=== PATIENT | male | born 1995 | race Caucasian/White ===

== ENCOUNTER 2018-09-24 12:09 | Emergency (ER) | payer OTHER ==
[2018-09-24 12:25] VITALS: BP 152/89; RESP 18; TEMP 98.4
[2018-09-24] MEDS ORDERED: ALBUTEROL NEBULIZED 2.5 MG/3 ML INHALATION STA (13:43)
[2018-09-24] MEDS ORDERED: ONDANSETRON 4 MG TAB PO STA (13:43)
[2018-09-24] MEDS ORDERED: predniSONE 20 MG TAB PO STA (13:43)
[2018-09-24] MEDS ORDERED: ONDANSETRON ODT 4 MG TAB PO STA (13:51)
--- NOTE | 2018-09-24 13:55 | ED ---
URI HPI - General Chief Complaint: Upper Respiratory Infection Stated Complaint: URI Time Seen by Provider: 09/24/18 13:33 Source: patient Mode of arrival: ambulatory Limitations: no limitations - History of Present Illness Initial Comments: Patient is a 22-year-old male presents with a chief complaint of cough, congestion, and a chandra brown sputum production for about one week. The patient states that he has a 2-year-old son who was recently sick with similar symptoms. He thinks he got the infection from his son. The patient states that his sympt oms are worse at night when he tries to bed. He is not hurting any medications for this. He denies any shortness of breath, and states that he has been fully ambulatory. Patient states that he had a fever early on in his illness however he has not had fever in several days. The patient is a current smoker, smokes 1 pack per week. Patient is otherwise healthy. He has a medical history of bipo lar depression and takes medication for but he is unable to recall the name of the medication is. - Related Data Home Medications Medication Instructions Recorded Confirmed Sertraline [Zoloft] 50 mg PO QAM 09/24/18 09/24/18 lamoTRIgine [LaMICtal] 50 mg PO HS 09/24/18 09/24/18 Previous Rx's Medication Instructions Recorded Albuterol Inhaler [Ventolin Hfa 1 - 2 puff INHALATION RT-Q6H #1 09/24/18 Inhaler] inhaler Azithromycin [Zithromax Z-pack] 250 mg PO DIRECTED #6 tab 09/24/18 Ondansetron Odt [Zofran Odt] 4 mg PO Q8HR PRN #12 tab 09/24/18 predniSONE 60 mg PO DAILY #12 tab 09/24/18 Allergies Allergy/AdvReac Type Severity Reaction Status Date / Time No Known Allergies Allergy Verified 09/24/18 13:53 Review of Systems ROS Statement: Those systems with pertinent positive or pertinent negative responses have been documented in the HPI. ROS Other: All systems not noted in ROS Statement are negative. ENT: Reports: congestion Respiratory: Reports: cough Past Medical History Past Medical History: No Reported History History of Any Multi-Drug Resistant Organisms: None Reported Past Surgical History: No Surgical Hx Reported Past Psychological History: Bipolar Smoking Status: Current every day smoker Past Alcohol Use History: None Reported Past Drug Use History: None Reported General Exam Limitations: no limitations General appearance: alert, in no apparent distress Head exam: Present: atraumatic, normocephalic Eye exam: Present: normal appearance ENT exam: Present: mucous membranes moist, other (cerumen impaction bilaterally, erythematous nasal turbinates ) Neck exam: Present: normal inspection Respiratory exam: Present: normal lung sounds bilaterally. Absent: respiratory distress, wheezes Cardiovascular Exam: Present: regular rate, normal rhythm GI/Abdominal exam: Present: soft Rectal exam: Present: deferred Extremities exam: Present: normal inspection Back exam: Present: normal inspection Neurological exam: Present: alert, oriented X3 Psychiatric exam: Present: normal affect, normal mood Skin exam: Present: warm, dry, intact Course Vital Signs 09/24/18 09/24/18 09/24/18 12:23 13:52 13:59 Temperature 98.4 F Pulse Rate 69 78 74 Respiratory 18 Rate Blood Pressure 152/89 O2 Sat by Pulse 97 Oximetry Medical Decision Making - Medical Decision Making Patient presents with a chief complaint of cough and congestion. On initial evaluation, vitals are stable, patient is in no acute distress. Patient to be evaluated with a chest x-ray to rule out pneumonia. Vital signs otherwise stable, no indication for lab evaluation today. Patient was given Zofran, prednisone, and a breathing treatment. He'll be treated for bronchitis and instructed to follow-up with his primary care doctor. 2:38 PM Chest x-ray is unremarkable. On reevaluation, the patient feels better. He was prescribed prednisone, azithromycin, Zofran, and albuterol. He was instructed to follow up with primary care 1-2 days, return to the ED if symptoms worsen or change. Disposition Clinical Impression: Common cold, Bronchitis Disposition: HOME SELF-CARE Condition: Good Instructions (If sedation given, give patient instructions): Upper Respiratory Infection (ED) Prescriptions: predniSONE 60 mg PO DAILY #12 tab Albuterol Inhaler [Ventolin Hfa Inhaler] 1 - 2 puff INHALATION RT-Q6H #1 inhaler Azithromycin [Zithromax Z-pack] 250 mg PO DIRECTED #6 tab Ondansetron Odt [Zofran Odt] 4 mg PO Q8HR PRN #12 tab PRN Reason: Nausea Is patient prescribed a controlled substance at d/c from ED?: No Referrals: None,Stated [Primary Care Provider] - 1-2 days Zaria Narvaez MD [STAFF PHYSICIAN] - 1-2 days
[2018-09-24 14:00] VITALS: PULSE 74
--- NOTE | 2018-09-24 14:22 | XR ---
EXAMINATION TYPE: XR chest 2V DATE OF EXAM: 09/24/2018 COMPARISON: NONE TECHNIQUE: PA and lateral views submitted. HISTORY: Cough FINDINGS: The lungs are clear and there is no pneumothorax, pleural effusion, or focal pneumonia. IMPRESSION: 1. No acute process.
== END 2018-09-24 15:23 | disposition home or self-care (01) ==
LOC: EC 12:09
DX: J40 Bronchitis, not specified as acute or chronic (principal); J00 Acute nasopharyngitis [common cold]; F31.30 Bipolar disorder, current episode depressed, mild or moderate severity, unspecified; F17.210 Nicotine dependence, cigarettes, uncomplicated; Z79.899 Other long term (current) drug therapy
CPT/HCPCS: 94640; 71046; 99283; J7512

== ENCOUNTER 2018-10-06 19:08 | Emergency (ER) | payer OTHER ==
[2018-10-06 19:49] VITALS: BP 135/83; PULSE 64; RESP 18; TEMP 97.4
--- NOTE | 2018-10-06 20:36 | ED ---
ENT HPI - General Chief complaint: ENT Stated complaint: Right hearing loss Time Seen by Provider: 10/06/18 20:06 Source: patient Mode of arrival: ambulatory Limitations: no limitations - History of Present Illness Initial comments: 22-year-old male presented for right ear pain. Patient states it began today after swimming. Patient states he did not go below 8-10ft Denies scuba diving. Patient denies any bleeding in the ear. He states he has slight hearing loss not complete. Patient states the symptoms did not begin until he was attempting to get water of his ears with a Q-tip. Patient denies experiencing symptoms prior to today. Patient denies any fever or chills denies any posterior ear pain. Patient denies upper respiratory symptoms. Remaining review of systems negative patient appears well no signs of acute distress. Afebrile. - Related Data Home Medications Medication Instructions Recorded Confirmed Sertraline [Zoloft] 50 mg PO QAM 09/24/18 09/24/18 lamoTRIgine [LaMICtal] 50 mg PO HS 09/24/18 09/24/18 Previous Rx's Medication Instructions Recorded Albuterol Inhaler [Ventolin Hfa 1 - 2 puff INHALATION RT-Q6H #1 09/24/18 Inhaler] inhaler Azithromycin [Zithromax Z-pack] 250 mg PO DIRECTED #6 tab 09/24/18 Ondansetron Odt [Zofran Odt] 4 mg PO Q8HR PRN #12 tab 09/24/18 predniSONE 60 mg PO DAILY #12 tab 09/24/18 Allergies Allergy/AdvReac Type Severity Reaction Status Date / Time No Known Allergies Allergy Verified 09/24/18 13:53 Review of Systems ROS Statement: Those systems with pertinent positive or pertinent negative responses have been documented in the HPI. ROS Other: All systems not noted in ROS Statement are negative. Past Medical History Past Medical History: Asthma History of Any Multi-Drug Resistant Organisms: None Reported Past Surgical History: No Surgical Hx Reported Past Psychological History: Bipolar Smoking Status: Current every day smoker Past Alcohol Use History: None Reported Past Drug Use History: None Reported General Exam - General Exam Comments Initial Comments: General: The patient is awake and alert, in no distress, and does not appear acutely ill. Eye: Pupils are equal, round and reactive to light, extra-ocular movements are intact. No nystagmus. There is normal conjunctiva bilaterally. No signs of icterus. right TM not visualized secondary to cerumen. EAC WNL b/l. NO pain with palpation or pulling of auricle or touching pinna. No pain to palpation of the posterior right ear/mastoid. Ears, nose, mouth and throat: There are moist mucous membranes and no oral lesions. Neck: The neck is supple, there is no tenderness or JVD. Cardiovascular: There is a regular rate and rhythm. No murmur, rub or gallop is appreciated. Respiratory: Lungs are clear to auscultation, respirations are non-labored, breath sounds are equal. No wheezes, stridor, rales, or rhonchi. Gastrointestinal: [Soft, non-distended, non-tender abdomen without masses or organomegaly noted. There is no rebound or guarding present. No CVA tenderness. Bowel sounds are unremarkable.] Musculoskeletal: Normal ROM, no tenderness. Strength 5/5. Sensation intact. Pulses equal bilaterally 2+. Neurological: A&O x 3. CN II-XII intact, There are no obvious motor or sensory deficits. Coordination appears grossly intact. Speech is normal. Skin: Skin is warm and dry and no rashes or lesions are noted. Psychiatric: Cooperative, appropriate mood & affect, normal judgment. Limitations: no limitations Course Vital Signs 10/06/18 19:45 Temperature 97.4 F L Pulse Rate 64 Respiratory 18 Rate Blood Pressure 135/83 O2 Sat by Pulse 99 Oximetry Medical Decision Making - Medical Decision Making 22-year-old male presenting to the ER after sudden onset of right ear pain and slight loss of hearing after using Q-tip. Due to serum and I was not able to visualize the right tympanic membrane. No evidence of bleeding and the EAC. Patient has no URI symptoms. This time feel patient most likely perforated tympanic membrane. Patient's pain control. He appears well. The stye. Patient stable for discharge with ENT and PCP follow-up. Return parameters were discussed at length the patient who verbalized understanding Disposition Clinical Impression: Hearing loss, Acute pain of right ear Disposition: HOME SELF-CARE Condition: Good Instructions (If sedation given, give patient instructions): Ruptured Eardrum (ED) Additional Instructions: Please use medication as discussed. Please follow-up with family doctor in the next 2 days and ENT within next week. Please return to emergency room if the symptoms increase or worsen or for any other concerns-persistent hearing loss, fever, pain of the back of the ear, pain when pulling the ear. Is patient prescribed a controlled substance at d/c from ED?: No Referrals: None,Stated [Primary Care Provider] - 1-2 days Douglas López DO [Doctor of Osteopathic Medicine] - 1-2 days Time of Disposition: 20:35
== END 2018-10-06 20:57 | disposition home or self-care (01) ==
LOC: EC 19:08
DX: H91.91 Unspecified hearing loss, right ear (principal); H92.01 Otalgia, right ear; F31.9 Bipolar disorder, unspecified; F17.200 Nicotine dependence, unspecified, uncomplicated; Z79.899 Other long term (current) drug therapy
CPT/HCPCS: 99283

== ENCOUNTER 2018-10-13 08:42 | Emergency (ER) | payer OTHER ==
[2018-10-13] MEDS ORDERED: DIPH,PERTUS(ACELL)TETVAC-LF 0.5 ML VIAL IM ONE (08:59)
[2018-10-13] MEDS ORDERED: LIDOCAINE 1% INJ 10MG/ML (20 ML MDV) SQ STA (08:59)
--- NOTE | 2018-10-13 09:12 | ED ---
General Adult HPI - General Chief complaint: Wound/Laceration Stated complaint: Finger Lac Time Seen by Provider: 10/13/18 08:54 Source: patient, RN notes reviewed, old records reviewed Mode of arrival: ambulatory Limitations: no limitations - History of Present Illness Initial comments: 22-year-old male patient presents a chief complaint of laceration. Patient reports that he was using a [employer] coffeemaker this morning when the glass broke causing laceration to his right thumb. Patient reports that last tetanus was approximately age 14. Patient denies any other complaints at this time. Systemic: Pt denies fatigue, fever/chills, rash. Pt denies weakness, night sweats, weight loss. Neuro: Pt denies headache, visual disturbances, syncope or pre-syncope. HEENT: Pt denies ocular discharge or irritation, otalgia, rhinorrhea, pharyngitis or notable lymphadenopathy. Cardiopulmonary: Pt denies chest pain, SOB, heart palpitations, dyspnea on exertion. Abdominal/GI: Pt denies abdominal pain, n/v/d. : Pt denies dysuria, burning w/ urination, frequency/urgency. Denies new onset urinary or bowel incontinence. MSK: Pt denies myalgia, loss of strength or function in extremities. Neuro: Pt denies new onset weakness, paresthesias. - Related Data Home Medications Medication Instructions Recorded Confirmed Sertraline [Zoloft] 50 mg PO QAM 09/24/18 10/13/18 lamoTRIgine [LaMICtal] 50 mg PO HS 09/24/18 10/13/18 Previous Rx's Medication Instructions Recorded Albuterol Inhaler [Ventolin Hfa 1 - 2 puff INHALATION RT-Q6H #1 09/24/18 Inhaler] inhaler Cephalexin [Keflex] 500 mg PO Q6HR 3 Days #12 cap 10/13/18 Allergies Allergy/AdvReac Type Severity Reaction Status Date / Time No Known Allergies Allergy Verified 10/13/18 08:57 Review of Systems ROS Statement: Those systems with pertinent positive or pertinent negative responses have been documented in the HPI. ROS Other: All systems not noted in ROS Statement are negative. Past Medical History Past Medical History: Asthma History of Any Multi-Drug Resistant Organisms: None Reported Past Surgical History: No Surgical Hx Reported Past Psychological History: Anxiety, Bipolar, Depression, Schizophrenia Smoking Status: Former smoker Past Alcohol Use History: Occasional Past Drug Use History: None Reported General Exam - General Exam Comments Initial Comments: Constitutional: NAD, AOX3, Pt has pleasant affect. HEENT: NC/AT, trachea midline, neck supple, no lymphadenopathy. Posterior pharynx non erythematous, without exudates. External ears appear normal, without discharge. Mucous membranes moist. Eyes PERRLA, EOM intact. There is no scleral icterus. No pallor noted. Cardiopulmonary: RRR, no murmurs, rubs or gallops, no JVD noted. Lungs CTAB in anterior and posterior acevedo. No peripheral edema. Abdominal exam: Abdomen soft and non-distended. Abdomen non-tender to palpation in all 4 quadrants. Bowel sounds active in LLQ. No hepatosplenomegaly. No ecchymosis Neuro: CN II-XII grossly intact. No nuchal rigidity. No raccon eyes, no guaman sign, no hemotympanum. No cervical spinal tenderness. MSK: 3 cm stellate laceration to pad of right thumb. There is a irrigated 1 L normal saline. No foreign body, bony or ligamentous involvement. Full active range of motion of digit. Flexion and extension intact ITP joint. Flexion extension adduction abduction rotation intact. Approximated with 5 simple interrupted sutures. No posterior calf tenderness bilaterally, homans sign negative bilaterally. Posterior tibialis and radial pulse +2 bilaterally. Sensation intact in upper and lower extremities. Full active ROM in upper and lower extremities, 5/5 stregnth. Limitations: no limitations Course Vital Signs 10/13/18 10/13/18 08:50 11:14 Temperature 97.6 F 97.9 F Pulse Rate 72 86 Respiratory 18 16 Rate Blood Pressure 148/99 123/85 O2 Sat by Pulse 97 99 Oximetry Medical Decision Making - Medical Decision Making 22-year-old male patient presents a chief complaint of laceration. Patient reports that he was using a [employer] fri[employer] coffeemaker this morning when the glass broke causing laceration to his right thumb. Patient reports that last tetanus was approximately age 14. Patient denies any other complaints at this time. Patient vital signs stable, afebrile. Physical exam displayed: 3 cm stellate laceration to pad of right thumb. There is a irrigated 1 L normal saline. No foreign body, bony or ligamentous involvement. Full active range of motion of digit. Flexion and extension intact ITP joint. Flexion extension adduction abduction rotation intact. Approximated with 5 simple interrupted sutures. Lymphoma display acute process. Patient discharged with 3 days of Keflex, will monitor for signs symptoms of infection. Return precautions discussed, follow up with primary care provider in 1-2 days. Case discussed with Dr. Pearson. Disposition Clinical Impression: Laceration Disposition: HOME SELF-CARE Condition: Stable Instructions (If sedation given, give patient instructions): Laceration (ED) Additional Instructions: Patient to adhere to previously discussed treatment plan and will take medication(s) as directed. Patient to follow up with PCP in 1-2 days. Patient to return to ED if symptoms do not improve. Please return for suture removal: Hand: 7-10 days Face: 5 days Chest/abdomen: 12-14 days Extremities: 7-10 days Scalp: 7 days Eyebrow: 5-7 days Foot/sole: 12-14 days Please monitor for signs and symptoms of infection including: redness, warmth, drainage, discharge. Please return to ED if these signs or symptoms occur, new signs or symptoms develop or if condition worsens in anyway. Prescriptions: Cephalexin [Keflex] 500 mg PO Q6HR 3 Days #12 cap Is patient prescribed a controlled substance at d/c from ED?: No Referrals: None,Stated [Primary Care Provider] - 1-2 days
--- NOTE | 2018-10-13 09:45 | XR ---
EXAMINATION TYPE: XR finger RT , 3 VIEWS DATE OF EXAM ORDERED: 10/13/2018 HISTORY: Pain. COMPARISON: Previous study dated 11/07/2011. FINDINGS: No fracture or dislocation is seen. No other osseous lesion is visualized. IMPRESSION: NO ACUTE OSSEOUS LESION.
[2018-10-13 11:14] VITALS: BP 123/85; PULSE 86; RESP 16; TEMP 97.9
== END 2018-10-13 11:14 | disposition home or self-care (01) ==
LOC: EC 08:42
DX: S61.011A Laceration without foreign body of right thumb without damage to nail, initial encounter (principal); F31.9 Bipolar disorder, unspecified; F41.9 Anxiety disorder, unspecified; Z87.891 Personal history of nicotine dependence; Z79.899 Other long term (current) drug therapy; Z23 Encounter for immunization; W25.XXXA Contact with sharp glass, initial encounter; Y93.89 Activity, other specified; Y92.009 Unspecified place in unspecified non-institutional (private) residence as the place of occurrence of the external cause
CPT/HCPCS: 73140; 90715; 99283; 12002; 90471; J2001

== ENCOUNTER 2018-11-15 11:06 | Emergency (ER) | payer OTHER ==
[2018-11-15 11:12] VITALS: RESP 18
[2018-11-15] MEDS ORDERED: SODIUM CHLORIDE 0.9% 1,000 ML IV ONE (11:45)
[2018-11-15] MEDS ORDERED: ONDANSETRON 4 MG/2 ML VIAL IVP STA (11:45)
[2018-11-15 12:03] LABS: ALT 32 U/L (21-72); AST 29 U/L (17-59); African American GFR (CKD) >90 (>60 ml/min/1.73 sqM); Albumin 4.7 g/dL (3.5-5.0); Alkaline Phosphatase 61 U/L (38-126); Anion Gap 11 mmol/L; Blood Urea Nitrogen 19 mg/dL (9-20); Calcium 9.5 mg/dL (8.4-10.2); Carbon Dioxide 26 mmol/L (22-30); Chloride 103 mmol/L (98-107); Glucose 104 mg/dL (74-99); Potassium 4.2 mmol/L (3.5-5.1); Sodium 140 mmol/L (137-145); Total Bilirubin 0.8 mg/dL (0.2-1.3); Total Protein 7.9 g/dL (6.3-8.2)
[2018-11-15 12:04] LABS: Basophils # (A) 0.1 k/uL (0-0.2); Basophils % (A) 0 %; Eosinophils # (A) 0.3 k/uL (0-0.7); Eosinophils % (A) 2 %; HCT 50.6 % (39.0-53.0); HGB 16.7 gm/dL (13.0-17.5); Lymphocytes # (A) 1.9 k/uL (1.0-4.8); Lymphocytes % (A) 16 %; MCH 30.1 pg (25.0-35.0); MCHC 32.9 g/dL (31.0-37.0); MCV 91.3 fL (80.0-100.0); Mean Platelet Volume 6.7; Monocytes # (A) 0.8 k/uL (0-1.0); Monocytes % (A) 7 %; Neutrophils # (A) 8.6 k/uL (1.3-7.7); Neutrophils % (A) 73 %; Platelet Count 245 k/uL (150-450); RBC 5.54 m/uL (4.30-5.90); RDW 12.5 % (11.5-15.5); WBC 11.7 k/uL (3.8-10.6)
--- NOTE | 2018-11-15 12:21 | ED ---
Nausea/Vomiting/Diarrhea HPI - General Chief complaint: Nausea/Vomiting/Diarrhea Stated complaint: NVD Time Seen by Provider: 11/15/18 11:23 Source: patient Mode of arrival: ambulatory Limitations: no limitations - History of Present Illness Initial comments: 22-year-old male no past medical history presents to the ER for nausea vomiting diarrhea. Patient states the past 5 days he has had nausea vomiting diarrhea. He states he passed his symptoms onto his son who is now having diarrhea. Patient denies fevers. Denies bloody stools. Denies recent travel. Patient is unsure if he ate something bad. Patient denies any severe abdominal pain he sta radha is mostly nausea and has had a couple episodes of vomiting. Patient states he has been eating drinking and urinating. Remaining review of systems negative. Upon arrival patient appears well signs of acute distress. - Related Data Previous Rx's Medication Instructions Recorded Ondansetron Odt [Zofran Odt] 4 mg PO Q8HR PRN 3 Days #9 tab 11/15/18 Allergies Allergy/AdvReac Type Severity Reaction Status Date / Time No Known Allergies Allergy Verified 11/15/18 11:42 Review of Systems ROS Statement: Those systems with pertinent positive or pertinent negative responses have been documented in the HPI. ROS Other: All systems not noted in ROS Statement are negative. Past Medical History Past Medical History: Asthma History of Any Multi-Drug Resistant Organisms: None Reported Past Surgical History: No Surgical Hx Reported Past Psychological History: Anxiety, Bipolar, Depression, Schizophrenia Smoking Status: Former smoker Past Alcohol Use History: Occasional Past Drug Use History: None Reported General Exam - General Exam Comments Initial Comments: General: The patient is awake and alert, in no distress, and does not appear acutely ill. Eye: Pupils are equal, round and reactive to light, extra-ocular movements are intact. No nystagmus. There is normal conjunctiva bilaterally. No signs of icterus. Ears, nose, mouth and throat: There are moist mucous membranes and no oral lesions. Neck: The neck is supple, there is no tenderness or JVD. Cardiovascular: There is a regular rate and rhythm. No murmur, rub or gallop is appreciated. Respiratory: Lungs are clear to auscultation, respirations are non-labored, breath sounds are equal. No wheezes, stridor, rales, or rhonchi. Gastrointestinal: Soft, non-distended, non-tender abdomen without masses or organomegaly noted. There is no rebound or guarding present.Bowel sounds are unremarkable. Musculoskeletal: Normal ROM, no tenderness. Strength 5/5. Sensation intact. Pulses equal bilaterally 2+. Neurological: A&O x 3. CN II-XII intact grossly, There are no obvious motor or sensory deficits. Coordination appears grossly intact. Speech is normal. Skin: Skin is warm and dry and no rashes or lesions are noted. Psychiatric: Cooperative, appropriate mood & affect, normal judgment. Limitations: no limitations Course Vital Signs 11/15/18 11/15/18 11:10 12:45 Temperature 97.7 F 98.2 F Pulse Rate 70 58 L Respiratory 18 18 Rate Blood Pressure 142/89 132/85 O2 Sat by Pulse 98 97 Oximetry Medical Decision Making - Medical Decision Making Very well-appearing 22-year-old male. Patient complaining of vomiting and diarrhea. Patient concerned of dehydration. Patient given IV fluids. Laboratory studies revealed mild leukocytosis otherwise unremarkable. Patient denies fever or bloody stools. Patient appears well positive sick contacts.Patient given zofran. Upon reevaluation symptom free. Patient's abdomen continues to be benign. At this time. Patient still for discharge with outpatient follow-up patient is agreeable to this care plan and discharge at this time. Discussed the case with attending provider. - Lab Data Result diagrams: 11/15/18 11:44 11/15/18 11:44 Lab Results 11/15/18 11/15/18 Range/Units 11:44 11:44 WBC 11.7 H (3.8-10.6) k/uL RBC 5.54 (4.30-5.90) m/uL Hgb 16.7 (13.0-17.5) gm/dL Hct 50.6 (39.0-53.0) % MCV 91.3 (80.0-100.0) fL MCH 30.1 (25.0-35.0) pg MCHC 32.9 (31.0-37.0) g/dL RDW 12.5 (11.5-15.5) % Plt Count 245 (150-450) k/uL Neutrophils % 73 % Lymphocytes % 16 % Monocytes % 7 % Eosinophils % 2 % Basophils % 0 % Neutrophils # 8.6 H (1.3-7.7) k/uL Lymphocytes # 1.9 (1.0-4.8) k/uL Monocytes # 0.8 (0-1.0) k/uL Eosinophils # 0.3 (0-0.7) k/uL Basophils # 0.1 (0-0.2) k/uL Sodium 140 (137-145) mmol/L Potassium 4.2 (3.5-5.1) mmol/L Chloride 103 (98-107) mmol/L Carbon Dioxide 26 (22-30) mmol/L Anion Gap 11 mmol/L BUN 19 (9-20) mg/dL Creatinine 1.00 (0.66-1.25) mg/dL Est GFR (CKD-EPI)AfAm >90 (>60 ml/min/1.73 sqM) Est GFR (CKD-EPI)NonAf >90 (>60 ml/min/1.73 sqM) Glucose 104 H (74-99) mg/dL Calcium 9.5 (8.4-10.2) mg/dL Total Bilirubin 0.8 (0.2-1.3) mg/dL AST 29 (17-59) U/L ALT 32 (21-72) U/L Alkaline Phosphatase 61 (38-126) U/L Total Protein 7.9 (6.3-8.2) g/dL Albumin 4.7 (3.5-5.0) g/dL Disposition Clinical Impression: Vomiting, Diarrhea Disposition: HOME SELF-CARE Condition: Good Instructions (If sedation given, give patient instructions): Acute Nausea and Vomiting (ED), Acute Diarrhea (ED) Additional Instructions: Please use medication as discussed. Please follow-up with family doctor in the next 2 days. Please return to emergency room if the symptoms increase or worsen or for any other concerns. Prescriptions: Ondansetron Odt [Zofran Odt] 4 mg PO Q8HR PRN 3 Days #9 tab PRN Reason: Nausea Is patient prescribed a controlled substance at d/c from ED?: No Referrals: None,Stated [Primary Care Provider] - 1-2 days [facility] - 1-2 days Time of Disposition: 12:27
[2018-11-15 12:46] VITALS: BP 132/85; PULSE 58; TEMP 98.2
== END 2018-11-15 12:46 | disposition home or self-care (01) ==
LOC: EC 11:06
DX: R11.2 Nausea with vomiting, unspecified (principal); R19.7 Diarrhea, unspecified; D72.829 Elevated white blood cell count, unspecified; Z87.891 Personal history of nicotine dependence
CPT/HCPCS: 36415; 80053; 85025; 99284; 96374; 96361; J2405

== ENCOUNTER 2018-12-07 18:46 | Emergency (ER) | payer OTHER ==
[2018-12-07 19:22] VITALS: BP 153/88; PULSE 63; RESP 18; TEMP 97.9
--- NOTE | 2018-12-07 20:17 | ED ---
Upper Extremity HPI - General Chief Complaint: Extremity Injury, Upper Stated Complaint: rt hand injury Time Seen by Provider: 12/07/18 19:23 Source: patient Mode of arrival: ambulatory Limitations: no limitations - History of Present Illness Initial Comments: Patient is a 22-year-old male presenting to the emergency Department with complaints of right hand pain happened prior to arrival. Patient states he was helping a friend move a couch out of a second-story window and had a rope tied around his hand that was helping lower the couch to the window. Patient states his friend let go of the couch and the couch dropped trapping his hand in the rope against the wall. Patient has pain and swelling around right hand. Patient denies any previous injuries or surgeries to the right hand. Patient has no other complaints at this time. Upon arrival to ER, vital signs are stable. - Related Data Previous Rx's Medication Instructions Recorded Ondansetron Odt [Zofran Odt] 4 mg PO Q8HR PRN 3 Days #9 tab 11/15/18 Allergies Allergy/AdvReac Type Severity Reaction Status Date / Time No Known Allergies Allergy Verified 11/15/18 11:42 Review of Systems ROS Statement: Those systems with pertinent positive or pertinent negative responses have been documented in the HPI. ROS Other: All systems not noted in ROS Statement are negative. Past Medical History Past Medical History: Asthma History of Any Multi-Drug Resistant Organisms: None Reported Past Surgical History: No Surgical Hx Reported Past Psychological History: Anxiety, Bipolar, Depression, Schizophrenia Smoking Status: Never smoker Past Alcohol Use History: Occasional Past Drug Use History: None Reported General Exam - General Exam Comments Initial Comments: GENERAL: Well-appearing, well-nourished and in no acute distress. HEAD: Atraumatic, normocephalic. EYES: Pupils equal round and reactive to light, extraocular movements intact, sclera anicteric, conjunctiva are normal. ENT: TMs normal, nares patent, oropharynx clear without exudates. Moist mucous membranes. NECK: Normal range of motion, supple without lymphadenopathy or JVD. LUNGS: Breath sounds clear to auscultation bilaterally and equal. No wheezes rales or rhonchi. HEART: Regular rate and rhythm without murmurs, rubs or gallops. ABDOMEN: Soft, nontender, normoactive bowel sounds. No guarding, no rebound. No masses appreciated. : Deferred EXTREMITIES: Patient has swelling and bruising around the palmar and dorsal aspect of the metacarpals of the right hand. Patient has full range of motion of the right fingers. Pain with palpation of the second through fifth metacarpals. Neurovascular intact. NEUROLOGICAL: Cranial nerves II through XII grossly intact. Normal speech, normal gait. PSYCH: Normal mood, normal affect. SKIN: Warm, Dry, normal turgor, no rashes or lesions noted. Limitations: no limitations Course Vital Signs 12/07/18 19:19 Temperature 97.9 F Pulse Rate 63 Respiratory 18 Rate Blood Pressure 153/88 O2 Sat by Pulse 95 Oximetry Medical Decision Making - Medical Decision Making Patient is a 22-year-old male presenting with right hand pain that happened pr ior to arrival. Patient was helping lower a couch to a window and had a rope tied around his right hand when the couch slipped and his hand was pinned against a wall still wrapped in the road. On exam patient has pain, bruising, swelling around the second through fifth metacarpals. X-rays of the right hand reveal no acute fractures or dislocations. Patient will use ice and Motrin for pain relief. Patient stable for discharge at this time. Return parameters were discussed with the patient he verbalizes understanding. Patient will follow up with PCP as needed. Case discussed with Dr. Pearson. Disposition Clinical Impression: Contusion of right hand Disposition: HOME SELF-CARE Condition: Stable Instructions (If sedation given, give patient instructions): Contusion in Adults (ED) Additional Instructions: Please return to the Emergency Department if symptoms worsen or any other concerns. Follow-up with orthopedics or PCP if symptoms persist. Is patient prescribed a controlled substance at d/c from ED?: No Referrals: Lisa Pro MD [Primary Care Provider] - 1-2 days
--- NOTE | 2018-12-07 23:53 | XR ---
EXAMINATION TYPE: XR hand complete RT DATE OF EXAM: 12/07/2018 CLINICAL HISTORY: Pain after crushing injury. TECHNIQUE: Frontal, lateral and oblique images of the right hand are obtained. COMPARISON: None. FINDINGS: There is no acute fracture/dislocation evident in the right hand. The joint spaces in the right hand appear within normal limits. The overlying soft tissue appears unremarkable. IMPRESSION: There is no acute fracture or dislocation in the right hand.
== END 2018-12-07 22:30 | disposition home or self-care (01) ==
LOC: EC 18:46
DX: S60.221A Contusion of right hand, initial encounter (principal); W23.0XXA Caught, crushed, jammed, or pinched between moving objects, initial encounter
CPT/HCPCS: 99283